=== PATIENT | female | born 1975 | race Caucasian/White ===

== ENCOUNTER → 2016-04-15 | Outpatient (CLI) | payer OTHER ==
[~2016-04-15] MED LIST: ACID REDUCER150 MG PO; ACIPHEX20 MG PO; ALBUTEROL MININEB NEB; ALBUTEROL17 GM; ALBUTEROL17 GM INH; AMITRYPTYLINE PO; AMOXICILLIN PO; AMOXICILLIN500 M1 PO; AUGMENTIN PO; BENADRYL PO; BENZONATATE PO; BREO ELLIPTA I1 EACH INH; CELEXA PO; CLARITIN10 MG PO; CLEOCIN HCL300 M1 PO; CLINDAMYCIN HC300 MG PO; DESYREL100 MG PO; DESYREL150 M1 PO; DESYREL50 MG; DESYREL50 MG DOB; DEXILANT60 MG PO; DOXYCYCLINE HY100 M1 PO; DULERA 200 MCG/13 GM IH; DUONEB 2.5-0.5 M3 ML NEB; FIORICET 50-321 EACH PO; FLEXERIL PO; FLEXERIL10 MG PO; FLONASE16 GM; FUROSEMIDE40 MG PO; GABAPENTIN800 MG PO; GEODAN PO; GEODON80 MG PO; HCTZ PO; HYDROCHLOROTHIA25 MG DOB; HYDROCHLOROTHIA25 MG PO; K-DUR20 ME1 DOB; K-DUR20 ME1 PO; KADIAN50 MG PO; KAPIDEX30 MG; KAPIDEX60 MG PO; KCL PO; KLONOPIN PO; KLONOPIN0.5 MG PO; KLONOPIN1 MG PO; LASIX PO; LEVAQUIN PO; LINZESS145 MCG PO; LIPITOR; LORATADINE PO; LORTAB 7.5-5001 TAB PO; MEDROL PO; MOBIC15 MG PO; MOBIC7.5 MG/5 M PO; MOTRIN400 MG PO; MS CONTIN30 M1 PO; MULTI VITAMIN1 EACH PO; MULTIVITAMIN1 UDCAP PO; NEURONTIN PO; NEURONTIN300 MG; NEURONTIN800 MG; NEURONTIN800 MG PO; OMNICEF300 MG PO; OXYCODONE-APAP1 EAC4 PO; PAMELOR50 MG PO; PERCOCET 7.5-31 EACH PO; PHENERGAN25 MG PO; PREDNISOLONE5 MG PO; PREDNISONE PO; PREDNISONE10 MG/DOSE PO; PRILOSEC PO; QUAVAR; QVAR7.3 GM INH; ROBAXIN PO; ROBITUSSIN A-C-S1 ML DOB; SEROQUEL; SINGULAIR PO; SPIRIVA RESPIMAT4 G1 INH; SPIRIVA18 MCG INH; SUDAFED30 M1 PO; SYMBICORT 16010.2 GM IH; SYMBICORT INH; SYMBICORT80; TAMIFLU75 M1 PO; TESSALON200 MG PO; TOPAMAX PO; TOPAMAX50 MG; TRAMADOL HCL50 M2 PO; TRAZODONE HCL100 MG PO; TRAZODONE HCL150 MG PO; TRAZODONE PO; ULTRAM PO; VIBRAMYCIN100 M1 DOB; VICOPROFEN; VITAMIN D250000 UNIT PO; ZANTAC150 MG PO; ZITHROMAX PO; ZYRTEC10 M1 PO; ZYRTEC10 M2 PO; [UNRECOGNIZED DRUG - CODE] PO; [UNRECOGNIZED DRUG - OTHER]
--- NOTE | ~2016-04-15 | EKG ---
PATIENT: ALEXEI BEASLEY UNIT #: [id number] Ventricular Rate: 85 BPM Atrial Rate: 85 BPM P-R Interval: 142 ms QRS Duration: 96 ms Q-T Interval: 370 ms QTC Calculation(Bezet): 440 ms P [place]: 50 degrees Calculated R [place]: 20 degrees Calculated T [place]: 25 degrees Diagnosis Line: Normal sinus rhythm Diagnosis Line: Minimal voltage criteria for LVH, may be normal Diagnosis Line: variant Diagnosis Line: Borderline ECG Diagnosis Line: When compared with ECG of 15-JUN-2014 18:52, Diagnosis Line: No significant change was found Diagnosis Line: Confirmed by SOL SOUZA MD ([id number]) on Diagnosis Line: 04/17/2016 11:59:50 PM INTERPRETING MD: HARLEY GHOTRA
== END | disposition home or self-care (01) ==
LOC: CAMB 12:19
DX: Z01.810 Encounter for preprocedural cardiovascular examination (principal); K44.9 Diaphragmatic hernia without obstruction or gangrene; K21.9 Gastro-esophageal reflux disease without esophagitis
CPT/HCPCS: 93005

== ENCOUNTER 2016-04-22 05:27 | Observation (INO) | payer OTHER ==
--- NOTE | ~2016-04-22 | OR ---
Unit #: [id number] #: [id number] Patient: ALEXEI BEASLEY [id number] [facility]. [place], [place] [address] [id number] MR#: [id number] NAME: ALEXEI BEASLEY ROOM: 461 Date of Procedure: 04/22/2016 Admission Date: 04/22/2016 Surgeon: Portillo Jones III, M.D. : 1975 Attending Physician: Portillo Jones III, M.D. Primary Care Physician: Nuno Ly M.D. OPERATIVE REPORT PREOPERATIVE DIAGNOSES Hiatal hernia with gastroesophageal reflux disease. POSTOPERATIVE DIAGNOSIS Hiatal hernia with gastroesophageal reflux disease. PROCEDURE PERFORMED Laparoscopic Ivanna fundoplication. FURNACE STOCK INSPECTOR Jacek Willard M.D. SPECIMEN None. COMPLICATIONS None apparent. ESTIMATED BLOOD LOSS Minimal. INDICATIONS FOR PROCEDURE This is a 40-year-old lady, who has a history of a hiatal hernia and reflux symptoms. She is here today for lap Ivanna. DESCRIPTION OF PROCEDURE After consent was obtained, the patient was brought to the operating room and placed in the supine position. General anesthetic was administered and her abdomen was prepped and draped in standard surgical fashion. I made a 1 cm incision above in the left of the umbilicus. I used a Visiport to enter into the peritoneal cavity without any difficulty. CO2 pneumoperitoneum was then established. Next, a 5 mm Christelle liver retractor was placed in the subxiphoid region and an 11-mm port was placed in the midepigastric region and a third 5-mm port was placed in the left lateral subcostal region. After the ports were in good position, I took down the gastrohepatic ligament with the Bovie cautery. I scored the phrenoesophageal ligament and mobilized the esophagus anteriorly. I then dissected out both the right and left crura, and followed this all the way down to where I was able to get circumferential control around the esophagus. Once the posterior V of the crura were well dissected, I turned my attention to taking down the short gastrics along the upper third of the fundus. This was done with the Harmonic Scalpel. Once I had the fundus mobilized, I then returned to closure of the hiatal defect. I Unit #: [id number] #: [id number] Patient: ALEXEI BEASLEY used an interrupted 0 Ethibond [id number] suture to reapproximate the hiatus. I then performed a 360-degree wrap and created this in a short floppy fashion with three interrupted 0 Ethibond sutures. The most superior stitch incorporated a bite of the anterior esophagus. I then had excellent hemostasis. The short gastrics along the upper spleen were very short and there was a little bit of bleeding from that area that was controlled with some placement of Surgicel. Again, hemostasis was excellent at the end of the case. I then removed all the trocars and released the pneumoperitoneum. I injected all port sites with 0.25% plain Marcaine. I reapproximated the skin edges with interrupted 4-0 Vicryl subcuticular suture. Steri-Strips were then applied. The patient tolerated the procedure without any problems and returned to the recovery room in stable condition. Dictated by... Portillo Jones III, M.D. VCL/jaziel TD: 04/23/2016 21:49 JOB #: [id number] OPERATIVE REPORT X Portillo Jones III, MD PROCEDURE OPERATIVE NOTE
[~2016-04-22 05:27] MED LIST changes: -LIPITOR; -SEROQUEL
[2016-04-23 03:48] LABS: HEMATOCRIT 33.6 % (35.0-45.0); HEMOGLOBIN 10.6 gm/dL (12.0-16.0); MEAN CELL VOLUME 81.7 FL (83-96); MEAN CORPUSCULAR HEMOGLOBIN 25.7 PG (28-34); MEAN CORPUSCULAR HGB CONC 31.4 g/dL (30-36); MEAN PLATELET VOLUME 8.6 FL (6.5-11.5); RED BLOOD COUNT 4.11 X10e (3.90-5.30); WHITE BLOOD COUNT 12.6 X10e3 (4.0-10.5)
== END 2016-04-23 11:55 | disposition home or self-care (01) ==
LOC: CSUR 05:27 → CPACUOF 08:20 → C4C 12:15
PROVIDERS: Surgery
DX: K44.9 Diaphragmatic hernia without obstruction or gangrene (principal); K21.9 Gastro-esophageal reflux disease without esophagitis; E66.01 Morbid (severe) obesity due to excess calories; J44.9 Chronic obstructive pulmonary disease, unspecified; J45.909 Unspecified asthma, uncomplicated; M19.90 Unspecified osteoarthritis, unspecified site
CPT/HCPCS: 84703; 85027; 94760; 96372; 96374; 96375; 96376; G0378; J0330; J0690; J1100; J1170; J1650; J1885; J2250; J2270; J2405; J2550; J3010

== ENCOUNTER 2016-05-20 15:18 | Emergency (ER) | payer OTHER ==
--- NOTE | ~2016-05-20 | EKG ---
PATIENT: ALEXEI BEASLEY UNIT #: [id number] Ventricular Rate: 120 BPM Atrial Rate: 120 BPM P-R Interval: 122 ms QRS Duration: 82 ms Q-T Interval: 314 ms QTC Calculation(Bezet): 443 ms P [place]: 60 degrees Calculated R [place]: 32 degrees Calculated T [place]: 20 degrees Diagnosis Line: Sinus tachycardia Diagnosis Line: Nonspecific ST abnormality Otherwise normal ECG Diagnosis Line: When compared with ECG of 15-APR-2016 13:25, Diagnosis Line: No significant change was found Diagnosis Line: Confirmed by RENA BLAND MD ([id number]) on 06/02/2016 Diagnosis Line: 11:45:45 AM INTERPRETING MD: EDWINA GHOTRA
--- NOTE | ~2016-05-20 | CT16 ---
[facility]. [facility] A Service of [facility] RADIOLOGY TEXT RESULTS PATIENT: ALEXEI BEASLEY LOCATION: SED : 73 UNIT #: [id number] AGE: [address]: Kahlil Kwon MD SEX: F ORDER DR: [id number] E MR#: [id number] Acc #: [id number] NAME: ALEXEI BEASLEY : 1975 SEX: F STUDY DATE/TIME: 05/20/2016 15:57 UNIT: SED ROOM: STUDY DESCRIPTION: CT Angio Chest for PE Attending Physician: Kahlil Kwon M.D. Referring Physician: Kahlil Kwon M.D. Ordering Physician: Kahlil Kwon M.D. Primary Care Physician: Nuno Ly M.D. MEDICAL IMAGING REPORT This report is preliminary unless electronic signature is present. EXAM CT chest, PE protocol HISTORY Shortness of air starting last night. Recent hiatal hernia repair [address] chest, 11/26/2014. TECHNIQUE Axial images performed through the chest following IV contrast. 3-D coronal and sagittal reconstructed images reviewed at a workstation. This CT exam was performed with one or more of the following radiation dose reduction techniques: automatic exposure control, adjustment of mA and/or kV according to patient size, and iterative reconstruction. FINDINGS The pulmonary parenchyma unremarkable, except for a small amount of right middle lobe atelectasis or scarring. No effusions. No mass lesions. Trachea, bronchi unremarkable. Normal enhancement of the pulmonary arteries. No evidence of embolus. Aorta free dissection or aneurysm. Heart size within normal limits. Apparent postsurgical changes are noted at the GE junction suggesting fundoplication. Small amount of gas is seen along the right lateral aspect of the GE junction. Again, this is felt to be postsurgical in nature. The patient is post cholecystectomy. Osseous structures and thoracic inlet appear normal. IMPRESSION [facility] A Service of [facility] RADIOLOGY TEXT RESULTS PATIENT: ALEXEI BEASLEY LOCATION: SED : 73 UNIT #: [id number] AGE: [address]: Kahlil Kwon MD SEX: F ORDER DR: 1. No acute intrathoracic abnormality identified. No evidence of pulmonary embolus. 2. Postsurgical changes at the GE junction suggesting fundoplication. Correlate with patient's surgical procedure. No evidence of complication. Dictated by... Connie Philip M.D. THIS IS AN ELECTRONICALLY VERIFIED REPORT Connie Philip M.D. at 05/23/2016 7:27 AM LOVE/mellissa TD: 05/20/2016 22:47 JOB #: [id number] MEDICAL IMAGING REPORT Page 1 of 1
[2016-05-20 14:42] LABS: BASOPHIL# 0.1 X10e3 (0-0.3); BASOPHIL% 0.6 % (0-2.5); EOSINOPHIL% 0.5 % (0.0-7.0); HEMATOCRIT 35.8 % (35.0-45.0); HEMOGLOBIN 11.5 gm/dL (12.0-16.0); LYMPHOCYTE# 0.5 X10e3 (1.0-3.5); LYMPHOCYTE% 5.1 % (17.0-45.0); MEAN CORPUSCULAR HGB CONC 32.1 g/dL (30-36); MEAN PLATELET VOLUME 8.7 FL (6.5-11.5); MONOCYTE# 0.1 X10e3 (0-1.0); MONOCYTE% 0.8 % (3.0-12.0); NEUTROPHIL# 9.4 X10e3 (1.5-7.1); PLATELET COUNT 200 X10e3 (140-420); RED BLOOD COUNT 4.41 X10e (3.90-5.30); RED CELL DISTRIBUTION WIDTH 17.4 % (11.0-15.5); WHITE BLOOD COUNT 10.1 X10e3 (4.0-10.5)
[2016-05-20 14:43] LABS: DIFF IND NO
[2016-05-20 14:54] LABS: PROTHROMBIN TIME (PATIENT) 11.8 SECONDS (9.5-12.4)
[2016-05-20 15:02] LABS: ALBUMIN SERUM 4.1 g/dL (3.5-5.0); ALKALINE PHOSPHATASE 59 U/L (32-92); ALT (SGPT) 10 U/L (10-40); AST (SGOT) 18 U/L (10-42); BILIRUBIN,TOTAL 0.3 mg/dL (0.2-2.0); BLOOD UREA NITROGEN 10 mg/dL (9-23); BUN/CREATININE RATIO 14.28; CALCIUM SERUM 9.2 mg/dL (8.4-10.2); CARBON DIOXIDE 23 mmol/L (22-31); CHLORIDE 103 mmol/L (100-111); CREATININE SERUM 0.7 mg/dL (0.6-1.4); GLOM FILT RATE Estimated 107.6 mL/min (>60); GLUCOSE FASTING 205 mg/dL (70-110); PARTIAL THROMBOPLASTIN TIME 29.8 SECONDS (25.6-38.1); POTASSIUM 3.5 mmol/L (3.5-5.1); PROTEIN TOTAL SERUM 7.5 g/dL (6.0-8.3); SODIUM 137 mmol/L (135-145)
[2016-05-20 15:04] LABS: BILIRUBIN, DIRECT <0.1 mg/dL (0.0-0.2); BILIRUBIN,INDIRECT 0.2 mg/dL (0.0-0.9)
[2016-05-20 15:06] LABS: POC - CKMB <1.0 ng/mL (0.0-7.9); POC - TROPONIN <0.05 ng/mL (<=0.05)
== END 2016-05-20 17:04 | disposition home or self-care (01) ==
LOC: SED 15:18
PROVIDERS: Emergency Medicine
DX: J20.9 Acute bronchitis, unspecified (principal); M54.5 Low back pain; F32.9 Major depressive disorder, single episode, unspecified; E78.5 Hyperlipidemia, unspecified; K21.9 Gastro-esophageal reflux disease without esophagitis; I10 Essential (primary) hypertension; M79.7 Fibromyalgia; F31.9 Bipolar disorder, unspecified; E66.9 Obesity, unspecified; Z90.49 Acquired absence of other specified parts of digestive tract; Z98.51 Tubal ligation status
CPT/HCPCS: 36415; 71275; 80048; 80076; 82553; 84484; 85025; 85610; 85730; 93005; 96361; 96374; 99284; J2930; Q9967

== ENCOUNTER 2016-08-28 16:24 | Emergency (ER) | payer OTHER ==
[~2016-08-28] VITALS: Ht 167.6 cm; Wt 132.9 kg
--- NOTE | ~2016-08-28 | CT52 ---
[facility] A Service of [facility] RADIOLOGY TEXT RESULTS PATIENT: ALEXEI BEASLEY LOCATION: SED : [birth year] UNIT #: [id number] AGE: [address]: Pauline Peña MD SEX: F ORDER DR: [id number] E MR#: [id number] Acc #: [id number] NAME: ALEXEI BEASLEY : 1975 SEX: F STUDY DATE/TIME: 08/28/2016 17:58 UNIT: SED ROOM: STUDY DESCRIPTION: CT Cervical Spine Wo Cont Attending Physician: Pauline Peña M.D. Ordering Physician: Pauline Peña M.D. Primary Care Physician: Nuno Ly M.D. MEDICAL IMAGING REPORT This report is preliminary unless electronic signature is present. EXAM CT cervical spine without contrast HISTORY 40-year-old female shooting neck pain down left arm x3 weeks. No known injury. FINDINGS Thin section axial images performed through the cervical spine without contrast. Multiplanar reconstructions. This CT examination was performed with one or more of the following radiation dose reduction techniques: automatic exposure control, adjustment of mA and/or kV according to patient size, and iterative reconstruction. No fracture or malalignment. Craniocervical, cervicothoracic junction appear normal. The atlantoaxial joint unremarkable. Questionable posterior disc bulging C6-[address] limited for evaluation of cervical disc disease. Paravertebral soft tissues, upper thorax unremarkable. IMPRESSION Limited evaluation for cervical disc disease on this non myelographic CT. No definite acute abnormality. Questionable mild posterior disc bulging at C6-7 and also on the left at C4-5. Recommend further evaluation with MRI on a non emergent basis. Dictated by... Connie Philip M.D. THIS IS AN ELECTRONICALLY VERIFIED REPORT Connie Philip M.D. at 08/29/2016 5:38 PM [facility] A Service of [facility] RADIOLOGY TEXT RESULTS PATIENT: ALEXEI BEASLEY LOCATION: SED : [birth year] UNIT #: [id number] AGE: [address]: Pauline Peña MD SEX: F ORDER DR: LOVE/grant TD: 08/29/2016 07:22 JOB #: [id number] MEDICAL IMAGING REPORT Page 1 of 1
[2016-08-28] MEDS ORDERED: SEROQUEL (16:52)
[2016-08-28] MEDS ORDERED: LIPITOR (16:52)
== END 2016-08-28 18:49 | disposition home or self-care (01) ==
LOC: SED 16:24
DX: M54.12 Radiculopathy, cervical region (principal); M54.16 Radiculopathy, lumbar region; K21.9 Gastro-esophageal reflux disease without esophagitis; Z88.2 Allergy status to sulfonamides; Z88.1 Allergy status to other antibiotic agents; Z88.7 Allergy status to serum and vaccine; Z88.8 Allergy status to other drugs, medicaments and biological substances; Z79.899 Other long term (current) drug therapy
CPT/HCPCS: 72125; 99283